=== PATIENT | female | born 1995 | race Two or more races ===

== ENCOUNTER → 2023-12-04 | Outpatient (CLI) | payer OTHER ==
[2023-12-04 18:36] LABS: HEMOGLOBIN 12.9 g/dl (12.0-15.5); MEAN CORPUSCULAR HGB CONC 32.3 g/dl (32.0-36.5); MEAN CORPUSCULAR VOLUME 83.7 fl (80.0-96.0); PLATELET COUNT, AUTOMATED 272 10^3/uL (150-450); RED BLOOD COUNT 4.78 10^6/uL (4.00-5.40); WHITE BLOOD COUNT 9.6 10^3/uL (4.0-10.0)
[2023-12-04 19:27] LABS: GC DNA AMPLIFICATION NEGATIVE (NEGATIVE)
[2023-12-04 19:34] LABS: HIV 1&2 SCREEN NEGATIVE (NEGATIVE)
[2023-12-04 19:42] LABS: HEPATITIS C VIRUS ABY INDEX < 0.02 INDEX (<0.8)
== END ==
LOC: M PLALAB 15:02
PROVIDERS: ATTEND Nurse Practitioner Women's Health
DX: Z34.80 Encounter for supervision of other normal pregnancy, unspecified trimester (principal)

== ENCOUNTER 2023-12-23 18:11 | Emergency (ER) | payer OTHER ==
[~2023-12-23] VITALS: Ht 162.6 cm; Wt 59.1 kg
[2023-12-23] MEDS ORDERED: GNP28TAB2 PO (18:20)
[2023-12-23] MEDS ORDERED: ACET-683 PO (18:20)
[2023-12-23] MEDS: ONDANSETRON 4MG TAB PO ONE (19:26)
[2023-12-23 20:02] VITALS: BP 124/70; TEMP 96; O2SAT 90
== END 2023-12-23 20:17 | disposition home or self-care (01) ==
LOC: M ED 18:11
DX: S61.401A Unspecified open wound of right hand, initial encounter (principal); W25.XXXA Contact with sharp glass, initial encounter; Y92.009 Unspecified place in unspecified non-institutional (private) residence as the place of occurrence of the external cause; Y93.G1 Activity, food preparation and clean up; Y99.9 Unspecified external cause status; Z3A.14 14 weeks gestation of pregnancy; Z79.1 Long term (current) use of non-steroidal anti-inflammatories (NSAID); Z79.899 Other long term (current) drug therapy

== ENCOUNTER → 2024-01-01 | Outpatient (CLI) | payer OTHER ==
[~2024-01-01] MED LIST: ACET-683 PO; GNP28TAB2 PO
[2024-01-01 18:30] LABS: LDH LACTATE DEHYDROGENASE 171 U/L (120-246)
[2024-01-01 18:31] LABS: ALT/SGPT 45 U/L (7.0-40); AST/SGOT 26 U/L (<34); BILIRUBIN,TOTAL 0.3 MG/DL (0.3-1.2); CREATININE FOR GFR 0.57 MG/DL (0.55-1.30); GLOMERULAR FILTRATION RATE > 60.0 (>60)
[2024-01-01 18:35] LABS: URIC ACID 3.3 MG/DL (3.1-7.8)
== END ==
LOC: M PLALAB 14:40
PROVIDERS: ATTEND Nurse Practitioner Women's Health
DX: Z87.59 Personal history of other complications of pregnancy, childbirth and the puerperium (principal)

== ENCOUNTER → 2024-01-31 | Outpatient (CLI) | payer OTHER | LOC: M WHC 13:41 | PROVIDERS: ATTEND Advanced Practice Midwife | DX: Z34.82 Encounter for supervision of other normal pregnancy, second trimester (principal) ==

== ENCOUNTER 2024-03-15 00:33 | Outpatient (CLI) | payer OTHER ==
[~2024-03-15] VITALS: Ht 162.6 cm; Wt 63.5 kg
[2024-03-15 00:48] VITALS: BP 133/71
[2024-03-15] MEDS ORDERED: ECOT81TA5 PO (01:06)
[2024-03-15] MEDS ORDERED: TUMS500C PO (01:06)
[2024-03-15] MEDS ORDERED: HOME MED LIST COMPLETE! XX SCH (01:10)
[2024-03-15] MEDS: PANTOPRAZOLE 40MG TAB (PROTONIX) PO ONE (02:01)
[2024-03-15 02:13] LABS: HEMATOCRIT 32.2 % (36.0-47.0); HEMOGLOBIN 10.6 g/dl (12.0-15.5); MEAN CORPUSCULAR HEMOGLOBIN 27.5 pg (27.0-33.0); MEAN CORPUSCULAR HGB CONC 32.9 g/dl (32.0-36.5); MEAN CORPUSCULAR VOLUME 83.6 fl (80.0-96.0); PLATELET COUNT, AUTOMATED 246 10^3/uL (150-450); RED BLOOD COUNT 3.85 10^6/uL (4.00-5.40); WHITE BLOOD COUNT 9.4 10^3/uL (4.0-10.0)
[2024-03-15 02:42] LABS: LIPASE 38 U/L (12-53)
[2024-03-15 02:44] LABS: ALBUMIN 2.6 G/DL (3.2-5.2); ALKALINE PHOSPHATASE 60 U/L (35-104); ALT/SGPT 15 U/L (7.0-40); AMYLASE 81 U/L (30-118); AST/SGOT 12 U/L (<34); BILIRUBIN,TOTAL 0.3 MG/DL (0.3-1.2); BLOOD UREA NITROGEN 8 MG/DL (9-23); CALCIUM LEVEL 9.3 MG/DL (8.5-10.1); CARBON DIOXIDE LEVEL 22 MMOL/L (20-31); CHLORIDE LEVEL 110 MMOL/L (98-107); CREATININE FOR GFR 0.56 MG/DL (0.55-1.30); GLOMERULAR FILTRATION RATE > 60.0 (>60); GLUCOSE, FASTING 92 MG/DL (60-100); POTASSIUM SERUM 3.7 MMOL/L (3.5-5.1); SODIUM LEVEL 139 MMOL/L (136-145); TOTAL PROTEIN 6.2 G/DL (5.7-8.2)
[2024-03-15 04:12] VITALS: BP 125/77
== END 2024-03-15 04:41 | disposition home or self-care (01) ==
LOC: M LDO 00:33
PROVIDERS: ATTEND Advanced Practice Midwife
DX: O99.612 Diseases of the digestive system complicating pregnancy, second trimester (principal); K21.9 Gastro-esophageal reflux disease without esophagitis; Z87.59 Personal history of other complications of pregnancy, childbirth and the puerperium; Z3A.26 26 weeks gestation of pregnancy
CPT/HCPCS: 36415; 59025; 76705; 80053; 82150; 83690; 85027; G0463

== ENCOUNTER → 2024-04-02 | Outpatient (CLI) | payer OTHER ==
[~2024-04-02] MED LIST changes: +ECOT81TA5 PO; +TUMS500C PO
[2024-04-02 13:10] LABS: HEMATOCRIT 35.3 % (36.0-47.0); HEMOGLOBIN 11.6 g/dl (12.0-15.5); MEAN CORPUSCULAR HEMOGLOBIN 28.2 pg (27.0-33.0); MEAN CORPUSCULAR HGB CONC 32.9 g/dl (32.0-36.5); MEAN CORPUSCULAR VOLUME 85.9 fl (80.0-96.0); PLATELET COUNT, AUTOMATED 260 10^3/uL (150-450); RED BLOOD COUNT 4.11 10^6/uL (4.00-5.40); WHITE BLOOD COUNT 9.1 10^3/uL (4.0-10.0)
[2024-04-02 13:42] LABS: GLUCOSE CHALLENGE TEST 1 HOUR 102 MG/DL (LESS THAN 140)
[2024-04-02 14:18] LABS: HIV 1&2 SCREEN NEGATIVE (NEGATIVE)
[2024-04-02 14:59] LABS: GC DNA AMPLIFICATION NEGATIVE (NEGATIVE)
== END ==
LOC: M PLALAB 08:20
PROVIDERS: ATTEND Obstetrics & Gynecology
DX: Z34.82 Encounter for supervision of other normal pregnancy, second trimester (principal)

== ENCOUNTER → 2024-04-08 | Outpatient (REF) ==
[2024-04-10 08:08] LABS: QuantiFERON-TB Gold Plus NEGATIVE (NEGATIVE)
== END ==
LOC: M LAB 12:33
PROVIDERS: ATTEND Family Medicine
DX: Z02.1 Encounter for pre-employment examination (principal)

== ENCOUNTER → 2024-06-03 | Outpatient (REF) | payer OTHER | LOC: M SFHCWAGY 12:27 | PROVIDERS: ATTEND Obstetrics & Gynecology | DX: Z34.83 Encounter for supervision of other normal pregnancy, third trimester (principal); Z36.85 Encounter for antenatal screening for Streptococcus B ==

== ENCOUNTER 2024-06-13 15:11 | Inpatient (IN) | payer OTHER ==
[2024-06-13] VITALS (21 sets, daily range): BP systolic 122–184; BP diastolic 69–104; O2SAT 98
[~2024-06-13] VITALS: Ht 162.6 cm; Wt 72.3 kg
[2024-06-13] MEDS ORDERED: HOME MED LIST COMPLETE! XX SCH (15:40)
[2024-06-13] MEDS: LACTATED RINGER'S 1000 ML IV STA (19:12)
[2024-06-13 19:34] LABS: HEMATOCRIT 41.6 % (36.0-47.0); HEMOGLOBIN 13.7 g/dl (12.0-15.5); MEAN CORPUSCULAR HGB CONC 32.9 g/dl (32.0-36.5); MEAN CORPUSCULAR VOLUME 82.1 fl (80.0-96.0); PLATELET COUNT, AUTOMATED 316 10^3/uL (150-450); RED BLOOD COUNT 5.07 10^6/uL (4.00-5.40); WHITE BLOOD COUNT 12.3 10^3/uL (4.0-10.0)
[2024-06-13] MEDS ORDERED: ONDANSETRON 4MG 2ML VIAL IV PRN (19:40)
[2024-06-13] MEDS ORDERED: diphenhydrAMINE 50MG/ML VIAL IV PRN (19:40)
[2024-06-13] MEDS ORDERED: EPIDURAL/PCA KEYS XX PRN (19:40)
[2024-06-13] MEDS ORDERED: NALOXONE INJ 0.4MG/1ML VIAL IV PRN (19:40)
[2024-06-13] MEDS ORDERED: LR 500 ML IV PRN (19:40)
[2024-06-13] MEDS ORDERED: ePHEDrine SULFATE 25 MG/5 ML(5MG/ML) SYRINGE IVP PRN (19:40)
[2024-06-13 20:24] LABS: HIV 1&2 SCREEN NEGATIVE (NEGATIVE)
[2024-06-13 20:31] LABS: HEPATITIS C VIRUS ABY INDEX 0.11 INDEX (<0.8)
[2024-06-13] MEDS ORDERED: OXYTOCIN INJ 10UNITS/ML 1ML VIAL IV PRN (20:40)
[2024-06-13] MEDS ORDERED: CARBOPROST TROMETHAMINE 250 MCG/ML AMP IM PRN (20:40)
[2024-06-13] MEDS: FENTANYL/ROPIVACAINE/NACL BAG 100 ML EPIDURAL SCH (20:40)
[2024-06-13] MEDS ORDERED: METHYLERGONOVINE MALEATE 0.2MG/ML 1ML VIAL IM PRN (20:40)
[2024-06-13] MEDS ORDERED: OXYTOCIN DRIP 30 UNITS in IV 1 EA IV SCH (20:40)
[2024-06-13] MEDS ORDERED: LR 1,000 ML IV SCH ×2 (20:40)
[2024-06-13] MEDS ORDERED: OXYTOCIN INJ 10UNITS/ML 1ML VIAL IM PRN (20:40)
[2024-06-13] MEDS ORDERED: TRANEXAMIC ACID INJection 1,000 MG in NS 100 ML IV PRN (20:40)
[2024-06-13] MEDS ORDERED: OXYTOCIN DRIP 30 UNITS in IV 1 EA IV PRN (20:40)
[2024-06-13] MEDS ORDERED: LIDOCAINE 1% MDV 20ML VIAL INFIL PRN (20:40)
[2024-06-13] MEDS: OXYTOCIN DRIP 30 UNITS in IV 1 EA IV PRN (21:20)
[2024-06-14 06:00] VITALS: BP 133/84; O2SAT 98
[2024-06-14] MEDS ORDERED: CALCIUM CARBONATE 500 MG CHEW U/D PO PRN (09:15)
[2024-06-14] MEDS ORDERED: RHOGAM 300MCG (1500IU) INJ IM SCH (09:15)
[2024-06-14] MEDS ORDERED: IBUPROFEN 600MG TAB PO PRN (09:15)
[2024-06-14] MEDS ORDERED: ACETAMINOPHEN 325 MG TAB PO PRN (09:15)
[2024-06-14] MEDS ORDERED: ONDANSETRON 4MG 2ML VIAL IV PRN (09:15)
[2024-06-14] MEDS: DOCUSATE SODIUM 100MG CAPSULE PO PRN (09:26)
[2024-06-14] MEDS: IBUPROFEN 800 MG TAB PO PRN (09:26)
[2024-06-14] MEDS: PRENATAL VITAMINS CHEWABLE TABLET PO SCH (09:30)
[2024-06-14 09:54] VITALS: BP 133/84; TEMP 98.9; O2SAT 98
[2024-06-14 18:00] VITALS: BP 137/83; O2SAT 98
[2024-06-14] MEDS: ANUSOL HC CREAM 30GM TOP PRN (23:11)
[2024-06-14] MEDS: DIBUCAINE 1% OINTMENT 30GM TOP PRN (23:11)
[2024-06-14] MEDS: ACETAMINOPHEN 500 MG TAB PO PRN (23:13)
[2024-06-15 06:00] VITALS: BP 156/86; O2SAT 99
[2024-06-15] MEDS ORDERED: IBUP80TA PO (12:59)
[2024-06-16] MEDS ORDERED: MEASLES,MUMPS,RUBELLA VACCINE INJ (MMR-II) SC.IMMUN ONE (09:00)
== END 2024-06-15 13:30 | disposition home or self-care (01) | DRG 807 ==
LOC: M LDO 15:11 → M LDI 18:52 → M OBS 23:30
PROVIDERS: ADMIT Obstetrics & Gynecology; ATTEND Obstetrics & Gynecology
PROC: 10E0XZZ Delivery of Products of Conception, External Approach (ICD-10-PCS; principal; 2024-06-13)
PROC: 0HQ9XZZ Repair Perineum Skin, External Approach (ICD-10-PCS; 2024-06-13)
DX: O69.82X0 Labor and delivery complicated by other cord entanglement, without compression, not applicable or unspecified (principal); Z37.0 Single live birth; Z3A.39 39 weeks gestation of pregnancy; O70.0 First degree perineal laceration during delivery; Z91.013 Allergy to seafood

== ENCOUNTER → 2024-11-07 | Outpatient (CLI) | payer OTHER ==
[~2024-11-07] MED LIST changes: +IBUP80TA PO
== END ==
LOC: M WUC 09:46
PROVIDERS: ATTEND Nurse Practitioner Adult Health
DX: Z11.1 Encounter for screening for respiratory tuberculosis (principal); M54.50 Low back pain, unspecified

== ENCOUNTER → 2025-01-09 | Outpatient (REF) | LOC: M EMP 09:23 | PROVIDERS: ATTEND Family Medicine | DX: Z01.89 Encounter for other specified special examinations (principal) ==